=== PATIENT | female | born 1980 | race Caucasian/White ===

== ENCOUNTER 2021-08-05 13:09 | Emergency (ER) | payer BC, SELFPAY ==
[2021-08-05 13:15] VITALS: BP 162/77; PULSE 83; RESP 16; TEMP 37.2; O2SAT 99; BMI 23.5
[2021-08-05 14:36] LABS: Basophils % 0.3 %; Eosinophils # 0.1 10^3/uL (0.0-0.8); Eosinophils % 0.5 %; Hematocrit 39.8 % (37.0-47.0); Hemoglobin 13.1 g/dL (11.5-15.3); Lymphocytes # 2.1 10^3/uL (0.8-4.8); Mean Corpuscular HGB Conc 32.9 g/dL (30.0-36.0); Mean Corpuscular Hemoglobin 29.1 pg (28.0-34.0); Mean Corpuscular Volume 88.4 fl (81-99); Mean Platelet Volume 10.2 fL (7.4-10.4); Monocytes # 0.6 10^3/uL (0.2-0.9); Monocytes % 6.4 %; Neutrophils # 6.46 10^3/uL (1.8-7.7); Neutrophils % 69.6 %; Nucleated Red Blood Cells % 0 %; Platelet Count 252 10^3/cmm (130-400); Red Cell Distribution Width 11.9 % (12.1-15.1); White Blood Count 9.3 10^3/uL (4.0-10.0)
[2021-08-05 15:04] LABS: Alanine Aminotransferase 17 U/L (0-33); Albumin Level 4.4 g/dL (3.5-5.2); Alkaline Phosphatase 72 IU/L (35-105); Anion Gap 14.8 (5-19); Aspartate Amino Transferase 17 U/L (0-32); Blood Urea Nitrogen 14 mg/dL (6-20); Calcium 8.3 mg/dL (8.5-10.5); Carbon Dioxide 25 mmol/L (22-29); Chloride 103 mmol/L (98-107); Globulin 2.1 g/dL (1.3-4.6); Glomerular Filtration Rate 137.4 mL/min (90-130); Glucose 107 mg/dL (65-115); Lipase 27 U/L (13-60); Osmolality Calculated 289 mOsm/kg (285-295); Potassium 3.8 mmol/L (3.5-5.1); Sodium 139 mmol/L (136-145); Total Bilirubin 0.2 mg/dL (0.15-1.2); Total Protein 6.5 g/dL (6.6-8.7)
[2021-08-05 15:07] LABS: Blood Urine 3+ (Negative); Specific Gravity, Urine 1.015 (1.005-1.030); Urine Appearance Hazy (CLEAR); Urine Color Yellow (Yellow); pH Urine 7 (5-7)
[2021-08-05] MEDS: HYDROcodone-acetaminophen 5-325 mg Tablet 1 TAB PO (15:07)
[2021-08-05 15:08] LABS: Add Urine Microscopic? YES; Bilirubin Urine Neg (Negative); Glucose Urine UA Norm (Normal); Ketones Urine Negative (Negative); Leukocyte Esterase Urine Negative (Negative); Nitrate Urine Negative (Negative); Protein Urine Neg (Negative); Urobilinogen Urine Norm (Negative)
[2021-08-05] MEDS: sodium chloride 0.9% 1,000 ML 999 ML IV (15:08)
[2021-08-05 15:14] LABS: Add Urine Culture? Yes; Bacteria Urine 2+ /hpf; Mucus Urine 1+ /hpf; Squamous Epithelial Cell Urine 0-4 /hpf (0-5); WBC Urine 25-40 /hpf (0-5)
--- NOTE | 2021-08-05 15:21 | CTR_ITS ---
PROCEDURE INFORMATION: Exam: CT Abdomen And Pelvis Without Contrast Exam date and time: 08/05/2021 3:49 PM Age: 41 years old Clinical indication: Abdominal pain; Flank; Left; Prior surgery; Surgery type: Hysto; Additional info: Flank pain TECHNIQUE: Imaging protocol: Computed tomography of the abdomen and pelvis without contrast. Radiation optimization: All CT scans at this facility use at least one of these dose optimization techniques: automated exposure control; mA and/or kV adjustment per patient size (includes targeted exams where dose is matched to clinical indication); or iterative reconstruction. COMPARISON: No relevant prior studies available. RADIATION DOSE METRICS: Total DLP (mGy-cm): 1025.12 FINDINGS: Liver: Normal. No mass. Gallbladder and bile ducts: Normal. No calcified stones. No ductal dilation. Pancreas: Normal. No ductal dilation. Spleen: Normal. No splenomegaly. Adrenal glands: Normal. No mass. Kidneys and ureters: 4 mm stone noted in the distal left ureter just proximal to the UVJ. There is mild upstream hydroureteronephrosis. Stomach and bowel: Unremarkable. No obstruction. No mucosal thickening. Appendix: No evidence of appendicitis. Intraperitoneal space: Unremarkable. No free air. No significant fluid collection. Vasculature: Unremarkable. No abdominal aortic aneurysm. Lymph nodes: Unremarkable. No enlarged lymph nodes. Urinary bladder: Unremarkable as visualized. Reproductive: Hysterectomy. Bones/joints: No acute fracture. Soft tissues: Unremarkable. CT/CT kidney stone [id number] IMPRESSION: 4 mm stone in the distal left ureter just proximal to the left UVJ. There is mild upstream hydroureteronephrosis.
--- NOTE | 2021-08-05 16:11 | ED_ITS ---
HPI - General Adult General: Chief complaint: General Medical Stated complaint: kidney pain/SOB Time Seen by Provider: 08/05/21 14:30 History of Present Illness: 41-year-old female patient presents to the emergency department complaining of left-sided flank pain. Patient states she w as recently treated for urinary tract infection and just completed 10 days of antibiotics. Patient states she has had blood in her urine and pain is increased on her left flank since. Patient denies any fever. Patient denies any nausea vomiting. Patient denies any chest pain or shortness of breath. Patient denies any abdominal pain. Associated symptoms: Deny chest pain, confusion, diaphoresis, dyspnea, headache(s), malaise, nausea, rash, palpitations, syncope or vomiting Review of Systems Const: Denies: fever(s), chills, body aches, change in appetite, change in weight, fatigue, malaise or diaphoresis Eyes: Denies: change in vision, blurry vision, blind spots, photophobia, eye discomfort, eye discharge, eye redness, floaters or seeing flashes ENMT: Denies: throat pain, uvular edema, enlarged tonsils, odynophagia, hoarseness, mouth pain, swelling of lips/tongue, oral sores, bleeding gums, dental pain, dry mouth, ear or mastoid pain, ear discharge, change in hearing, tinnitus, disequilibrium, nasal discharge, nasal congestion, post nasal drip or sinus pain Card: Denies: chest pain, palpitations, irregular heart rhythm, edema, swelling of feet/ankles, lightheadedness, syncope, pre-syncope, dyspnea on exertion, orthopnea, leg pain with exertion or acrocyanosis Resp: Denies: dyspnea, productive cough, non-productive cough, wheezing, stridor, pain on inspiration, change in phlegm color, hemoptysis or chest congestion GI: Denies: abdominal pain, nausea, vomiting, hematemesis, dysphagia, diarrhea, constipation, GI cramping, change in bowel habits or rectal pain : Reports: flank pain; Denies: difficulty voiding, dysuria, urinary frequency, urinary urgency, urinary hesitancy or hematuria Musc: Denies: neck pain, back pain, extremity pain, extremity swelling, joint pain, joint swelling, joint redness, joint warmth or deformity Skin/Breast: Denies: rash, pruritus, erythema, sores, new lesions, changes in skin color or dry skin Neuro: Denies: headache(s), numbness in extremities, weakness in extremities, sensory changes, lack of coordination, difficulty walking, frequent falls, dizziness, vertigo, confusion, behavioral changes, Slurred speech present, difficulty communicating thoughts or seizure-like activity Psych: Denies: anxiety, depression, suicidal ideation or homicidal ideation Endo: Denies: polyuria, polydipsia, tired all the time, cold intolerance, excessive sweating, flushing, hot flashes or heat intolerance Olu/Lymph: Denies: easy bruising, easy bleeding, petechiae, purpura, enlarged lymph nodes or tender lymph nodes All/Imm: Denies: urticaria, throat swelling, tongue swelling, facial swelling, acute wheezing or itchy eyes Physical Exam Const: COMMON NORMALS: no acute distress, average body habitus, patient oriented x3, no limitations, healthy appearing, alert and well nourished HENMT: COMMON NORMALS: normocephalic and atraumatic HEAD & SCALP: normocephalic and atraumatic THROAT: no uvular edema Neck/C-Spine: COMMON NORMALS: no JVD Chest: COMMONS NORMALS: normal inspection of the chest and normal palpation of entire chest wall Resp: COMMON NORMALS: normal respiratory effort, No retractions, No use of accessory muscles, clear to auscultation bilaterally and percussion normal AUSCULTATION: clear to auscultation bilaterally PERCUSSION: percussion normal Cardio: COMMON NORMALS: no JVD, regular rate, regular rhythm and No murmurs present (Cardio) RATE: regular rate RHYTHM: regular rhythm GI: COMMON NORMALS: Normal to inspection, nondistended, normoactive bowel sounds present, Soft to palpation, non-tender, No hepatosplenomegaly present, no masses and no bruits PALPATION: Yes Soft to palpation and Yes No hepatosplenomegaly present : COMMON NORMALS: Yes no CVA tenderness BLADDER/KIDNEY EXAM: Yes no CVA tenderness Back/Pelvis: COMMON NORMALS: no CVA tenderness, thoracic and lumbar spine normal to inspection, no thoracic nor lumbar tenderness, thoraco-lumbar ROM normal and straight leg raise negative bilaterally Neuro: COMMON NORMALS: patient oriented x3 SENSORIUM/ORIENTATION: Yes alert Psych: COMMON NORMALS: mental status grossly normal, Normal thought process present, cooperative, normal affect, speech normal, activity/motor behavior normal, denies hallucinations, denies homicidal ideation and denies suicidal ideation SPEECH: Yes normal speech THOUGHT PROCESS: Normal thought process present Course Vital Signs: Vital signs: Vital Signs Temperature 99.0 F 08/05/21 13:15 Pulse Rate 82 08/05/21 16:22 Respiratory Rate 16 08/05/21 16:22 Blood Pressure 156/88 08/05/21 16:22 Pulse Oximetry 98 08/05/21 16:22 MDM - General Adult Medical Decision Making Patient is well appearing non toxic and in no acute distress. Pt is oted to have a 4mm stone. Pt is not vomiting and pain is controlled. Pt states she has a prescription called in for Cipro and does not need any antibiotics as she will pick this one up. I will send patient home with a prescription for pain meds and have her follow up with urology. Urine strainer provided. Differential Diagnosis UTI, kidney stones, pylonephritis Lab Data : 08/05/21 14:20 08/05/21 14:20 Radiology Impressions Abdomen/Pelvis CT 08/05/21 15:21 IMPRESSION: 4 mm stone in the distal left ureter just proximal to the left UVJ. There is mild upstream hydroureteronephrosis. Laboratory Results WBC 9.3 10^3/uL (4.0-10.0) 08/05/21 14:20 RBC 4.50 10^6/uL (4.1-5.3) 08/05/21 14:20 Hgb 13.1 g/dL (11.5-15.3) 08/05/21 14:20 Hct 39.8 % (37.0-47.0) 08/05/21 14:20 MCV 88.4 fl (81-99) 08/05/21 14:20 MCH 29.1 pg (28.0-34.0) 08/05/21 14:20 MCHC 32.9 g/dL (30.0-36.0) 08/05/21 14:20 RDW 11.9 % (12.1-15.1) L 08/05/21 14:20 Plt Count 252 10^3/cmm (130-400) 08/05/21 14:20 MPV 10.2 fL (7.4-10.4) 08/05/21 14:20 Neut % (Auto) 69.6 % 08/05/21 14:20 Lymph % (Auto) 23.0 % 08/05/21 14:20 [place] % (Auto) 6.4 % 08/05/21 14:20 Eos % (Auto) 0.5 % 08/05/21 14:20 Baso % (Auto) 0.3 % 08/05/21 14:20 Neut # (Auto) 6.46 10^3/uL (1.8-7.7) 08/05/21 14:20 Lymph # (Auto) 2.1 10^3/uL (0.8-4.8) 08/05/21 14:20 [place] # (Auto) 0.6 10^3/uL (0.2-0.9) 08/05/21 14:20 Eos # (Auto) 0.1 10^3/uL (0.0-0.8) 08/05/21 14:20 Baso # (Auto) 0.0 10^3/uL (0.0-0.1) 08/05/21 14:20 Nucleated RBC % (auto) 0 % 08/05/21 14:20 Nucleated RBCs # 0.0 /100WBC 08/05/21 14:20 Sodium 139 mmol/L (136-145) 08/05/21 14:20 Potassium 3.8 mmol/L (3.5-5.1) 08/05/21 14:20 Chloride 103 mmol/L (98-107) 08/05/21 14:20 Carbon Dioxide 25 mmol/L (22-29) 08/05/21 14:20 Anion Gap 14.8 (5-19) 08/05/21 14:20 BUN 14 mg/dL (6-20) 08/05/21 14:20 Creatinine 0.5 mg/dL (0.5-0.9) 08/05/21 14:20 GFR Calculation 137.4 mL/min (90-130) H 08/05/21 14:20 Glucose 107 mg/dL (65-115) 08/05/21 14:20 Calculated Osmolality 289 mOsm/kg (285-295) 08/05/21 14:20 Calcium 8.3 mg/dL (8.5-10.5) L 08/05/21 14:20 Total Bilirubin 0.2 mg/dL (0.15-1.2) 08/05/21 14:20 AST 17 U/L (0-32) 08/05/21 14:20 ALT 17 U/L (0-33) 08/05/21 14:20 Alkaline Phosphatase 72 IU/L (35-105) 08/05/21 14:20 Total Protein 6.5 g/dL (6.6-8.7) L 08/05/21 14:20 Albumin 4.4 g/dL (3.5-5.2) 08/05/21 14:20 Globulin 2.1 g/dL (1.3-4.6) 08/05/21 14:20 Lipase 27 U/L (13-60) 08/05/21 14:20 HCG, Qual Cancelled 08/05/21 14:20 Urine Color Yellow (Yellow) 08/05/21 14:25 Urine Appearance Hazy (CLEAR) A 08/05/21 14:25 Urine pH 7 (5-7) 08/05/21 14:25 Ur Specific [place] 1.015 (1.005-1.030) 08/05/21 14:25 Urine Protein Neg (Negative) 08/05/21 14:25 Urine Glucose (UA) Norm (Normal) 08/05/21 14:25 Urine Ketones Negative (Negative) 08/05/21 14:25 Urine Blood 3+ (Negative) H 08/05/21 14:25 Urine Nitrate Negative (Negative) 08/05/21 14:25 Urine Bilirubin Neg (Negative) 08/05/21 14:25 Prot Sulfosalicylic Acd Accounting File Clerk 08/05/21 14:25 Urine Urobilinogen Norm mg/dL (Negative) 08/05/21 14:25 Ur Leukocyte Esterase Negative (Negative) 08/05/21 14:25 Urine RBC 10-15 /hpf (0-2) H 08/05/21 14:25 Urine WBC 25-40 /hpf (0-5) H 08/05/21 14:25 Ur Squamous Epith Cells 0-4 /hpf (0-5) H 08/05/21 14:25 Amorphous Sediment Not Reportable 08/05/21 14:25 Urine Bacteria 2+ /hpf (NONE) H 08/05/21 14:25 Urine Mucus 1+ /hpf 08/05/21 14:25 Discharge Plan Discharge Condition: Stable Prescriptions: No Action phentermine 37.5 mg Tablet 37.5 mg PO DAILY 0RF Rx Instructions: must administer 30 minutes before or 1-2 hours after breakfast estradiol 2 mg Tablet 2 mg PO DAILY 0RF sertraline 50 mg Tablet 50 mg PO DAILY 0RF Coding Level of Care Code ED Precision Lens Grinder Apprentice for Iris Mcelroy
[2021-08-05 16:22] VITALS: BP 156/88; PULSE 82; RESP 16; O2SAT 98
== END 2021-08-05 17:05 | disposition home or self-care (01) ==
PROVIDERS: Emergency Medicine; Emergency Provider Registered Nurse
DX: N20.1 Calculus of ureter (principal)
CPT/HCPCS: 74176; 80053; 81001; 83690; 85025; 87086; 96360; 99284; J7030

== ENCOUNTER 2021-08-08 11:30 | Emergency (ER) | payer BC, SELFPAY ==
[2021-08-08] VITALS (9 sets, daily range): BP systolic 125–157; BP diastolic 74–89; PULSE 68–88; RESP 16–19; TEMP 36.6; O2SAT 95–100; BMI 23.5
--- NOTE | 2021-08-08 11:43 | ED_ITS ---
HPI - General Adult General: Chief complaint: Urogenital-Female Stated complaint: SOB, Pain in lower abd and back area N/V Time Seen by Provider: 08/08/21 11:33 History of Present Illness: Patient is a 41-year-old female with a history of recurrent UTIs (most recently completed a 10 day of of abx), prior appendectomy presenting to the emergency room for complaints of worsening left-sided flank pain and nausea. Patient was initially seen and evaluated 2 days ago and was diagnosed with renal colic with a 4 mm stone in the left UVJ. Patient was noted also noted to have bacteria and elevated WBCs per high-power field. Patient was discharged home with ciprofloxacin with close follow-up. Patient has been taking her medicine however has noticed worsening pain and dysuria decided to come back to the emergency room for further evaluation. Patient denies any vomiting but reports moderate left lower flank pain. Patient has no new vaginal discharge that is different from her usual. Denies any diarrhea, chest pain, shortness of palpitation, lightheadedness, or other complaints today. Onset:2 days ago Duration:2 days Location:home Severity:moderate Associated symptoms: Deny chest pain, dyspnea, nausea, rash, palpitations or vomiting Review of Systems Const: Denies: fever(s) or chills Eyes: Denies: change in vision ENMT: Denies: mouth pain Card: Denies: chest pain or palpitations Resp: Denies: dyspnea or non-productive cough GI: Denies: abdominal pain, nausea, vomiting or diarrhea : Reports: flank pain and dysuria Musc: Denies: extremity pain Skin/Breast: Denies: rash or new lesions Neuro: Denies: weakness in extremities Psych: Reports: other (Normal mood) Olu/Lymph: Denies: easy bruising PFSH ED PFSH: Medical History Renal colic UTI (urinary tract infection) Surgical History History of appendectomy Social History Smoking and tobacco status: never smoked Alcohol intake: never Substance/Drug Use: never Physical Exam Const: COMMON NORMALS: alert HENMT: COMMON NORMALS: atraumatic HEAD & SCALP: atraumatic MOUTH: moist mucous membranes not abnormal Eye: COMMON NORMALS: EOMs intact bilaterally and conjunctivae normal CONJUNCTIVA: Yes conjunctivae normal Neck/C-Spine: COMMON NORMALS: full ROM and supple Resp: COMMON NORMALS: normal respiratory effort and clear to auscultation bilaterally AUSCULTATION: clear to auscultation bilaterally Cardio: COMMON NORMALS: regular rate RATE: regular rate GI: COMMON NORMALS: Soft to palpation and non-tender PALPATION: Yes Soft to palpation OTHER: +LLQ TTP. +L CVA tenderness to percusion. No guarding rebound, guarding, rigidity. Neg Beard/Neg McBurney's point tenderness, no suprabupic tenderness to palpation. Extremity: COMMON NORMALS: full ROM Neuro: SENSORIUM/ORIENTATION: Yes alert MOTOR EXAM: No Abnormal motor strength present and Other motor observations present (no focal motor deficits) Psych: COMMON NORMALS: speech normal SPEECH: Yes normal speech MOOD & AFFECT: Yes euthymic mood Course Vital Signs: Vital signs: Vital Signs Temperature 97.9 F 08/08/21 11:35 Pulse Rate 86 08/08/21 13:43 Respiratory Rate 18 08/08/21 13:43 Blood Pressure 157/86 08/08/21 13:43 Pulse Oximetry 100 08/08/21 13:43 MDM - General Adult Medical Decision Making 41-year-old female with a history of recurrent UTI presenting to the emergency room with concerns for worsening left lower quadrant and left flank pain x2 days since previously seen in the emergency room. On physical exam, patient moderate left lower quadrant or left CVA tenderness palpation. White count of 19 K. UA showed 2+ blood with 2+ ketones. CT abdomen pelvis showed stone size 5.7 mm enlarged compared to prior measurements of 4 mm. There appears to be mild hydroureter and hydronephrosis with a normal creatinine. No signs of UTI. Patient received IVF, morphine and Dilaudid with mild improvement in pain. We do not have urology currently scrap iron cutter today. Patient request to be transfer at this time. Case was discussed with Dr. Armstrong from Urology at [facility] who agreed with the transfer to [facility] for management of enlarged kidney stone. Disposition: Transfer to outside hospital Lab Data : 08/08/21 11:44 08/08/21 11:44 Radiology Impressions Abdomen/Pelvis CT 08/08/21 12:51 IMPRESSION: 1. Mild progression of the LEFT hydroureteronephrosis secondary to a 5.7 mm calcification at the UV junction. 2. Distal LEFT ureteral calcification has migrated inferiorly by 2 cm. 3. Prior hysterectomy and appendectomy. Laboratory Results WBC 19.0 10^3/uL (4.0-10.0) H 08/08/21 11:44 RBC 4.82 10^6/uL (4.1-5.3) 08/08/21 11:44 Hgb 13.9 g/dL (11.5-15.3) 08/08/21 11:44 Hct 42.8 % (37.0-47.0) 08/08/21 11:44 MCV 88.8 fl (81-99) 08/08/21 11:44 MCH 28.8 pg (28.0-34.0) 08/08/21 11:44 MCHC 32.5 g/dL (30.0-36.0) 08/08/21 11:44 RDW 11.7 % (12.1-15.1) L 08/08/21 11:44 Plt Count 262 10^3/cmm (130-400) 08/08/21 11:44 MPV 10.2 fL (7.4-10.4) 08/08/21 11:44 Neut % (Auto) 84.2 % 08/08/21 11:44 Lymph % (Auto) 9.5 % 08/08/21 11:44 [place] % (Auto) 5.4 % 08/08/21 11:44 Eos % (Auto) 0.1 % 08/08/21 11:44 Baso % (Auto) 0.4 % 08/08/21 11:44 Neut # (Auto) 16.00 10^3/uL (1.8-7.7) H 08/08/21 11:44 Lymph # (Auto) 1.8 10^3/uL (0.8-4.8) 08/08/21 11:44 [place] # (Auto) 1.0 10^3/uL (0.2-0.9) H 08/08/21 11:44 Eos # (Auto) 0.0 10^3/uL (0.0-0.8) 08/08/21 11:44 Baso # (Auto) 0.1 10^3/uL (0.0-0.1) 08/08/21 11:44 Nucleated RBC % (auto) 0 % 08/08/21 11:44 Nucleated RBCs # 0.0 /100WBC 08/08/21 11:44 Sodium 136 mmol/L (136-145) 08/08/21 11:44 Potassium 3.6 mmol/L (3.5-5.1) 08/08/21 11:44 Chloride 96 mmol/L (98-107) L 08/08/21 11:44 Carbon Dioxide 23 mmol/L (22-29) 08/08/21 11:44 Anion Gap 20.6 (5-19) H 08/08/21 11:44 BUN 11 mg/dL (6-20) 08/08/21 11:44 Creatinine 0.7 mg/dL (0.5-0.9) 08/08/21 11:44 GFR Calculation 93.2 mL/min (90-130) 08/08/21 11:44 Glucose 145 mg/dL (65-115) H 08/08/21 11:44 Calculated Osmolality 284 mOsm/kg (285-295) L 08/08/21 11:44 Calcium 9.4 mg/dL (8.5-10.5) 08/08/21 11:44 Total Bilirubin 0.3 mg/dL (0.15-1.2) 08/08/21 11:44 AST 25 U/L (0-32) 08/08/21 11:44 ALT 19 U/L (0-33) 08/08/21 11:44 Alkaline Phosphatase 73 IU/L (35-105) 08/08/21 11:44 Total Protein 7.3 g/dL (6.6-8.7) 08/08/21 11:44 Albumin 4.7 g/dL (3.5-5.2) 08/08/21 11:44 Globulin 2.6 g/dL (1.3-4.6) 08/08/21 11:44 Lipase 14 U/L (13-60) 08/08/21 11:44 Urine Color Straw (Yellow) 08/08/21 11:44 Urine Appearance Cloudy (CLEAR) 08/08/21 11:44 Urine pH 9 (5-7) H 08/08/21 11:44 Ur Specific [place] 1.020 (1.005-1.030) 08/08/21 11:44 Urine Protein Neg (Negative) 08/08/21 11:44 Urine Glucose (UA) Norm (Normal) 08/08/21 11:44 Urine Ketones 2+ (Negative) H 08/08/21 11:44 Urine Blood 2+ (Negative) H 08/08/21 11:44 Urine Nitrate Negative (Negative) 08/08/21 11:44 Urine Bilirubin Neg (Negative) 08/08/21 11:44 Prot Sulfosalicylic Acd Negative (Negative) 08/08/21 11:44 Urine Urobilinogen Norm mg/dL (Negative) 08/08/21 11:44 Ur Leukocyte Esterase Negative (Negative) 08/08/21 11:44 Urine RBC 5-10 /hpf (0-2) H 08/08/21 11:44 Urine WBC None /hpf (0-5) 08/08/21 11:44 Ur Squamous Epith Cells 0-4 /hpf (0-5) H 08/08/21 11:44 Amorphous Sediment 2+ /hpf 08/08/21 11:44 Urine Bacteria Trace /hpf (NONE) 08/08/21 11:44 Urine HCG, Qual Negative (Negative) 08/08/21 11:44 Imaging Data Other Imaging: Radiologist's impression: [place] [address] CT Scan Report Signed Patient: Crystal Parisi Unit #: [id number] : 1980 Age/Sex: 41 / F ADM Date: 08/08/21 Loc: ER Room/Bed: Attending Dr: Ordering Provider/Ordering MD: Joaquin Hazel MD Date of Service: 08/08/21 Procedure(s): CT abdomen pelvis con [id number] Accession Number(s): [id number] Report Number: [id number] WS: [id number] CT ABDOMEN AND PELVIS NONCONTRAST HISTORY: worsening hydronephrosis? TECHNIQUE: Imaging performed through the abdomen and pelvis. Coronal and sagittal reformats are submitted.? All CT scans at [facility] use at least one of these dose optimization techniques: automated exposure control; mA and/or kV adjustment per patient size (includes targeted exams where dose is matched to clinical indication); or iterative reconstruction. ? DLP: 997.89 mGy.cm COMPARISON: 08/05/2021 Lower thorax: Lung bases are clear. Visualized heart is normal. No hiatal hernia. Bilateral breast implants. Liver: Normal size liver. No mass or bile duct dilatation. Gallbladder: Normal gallbladder. Pancreas: Normal size and attenuation. Normal pancreatic duct. No pancreatitis or mass. Spleen: Normal. Adrenal glands: Normal. No mass. Right kidney: Normal size RIGHT kidney. 2 mm nonobstructing calcification in the lower pole. No hydronephrosis or mass. Left kidney: Mildly enlarged kidney with stranding. Perinephric stranding and hydroureteronephrosis has progressed since the prior examination. Periureteral stranding and dilatation. Again noted is a 5.7 mm calcification in the distal ureter which has minimally migrated inferiorly by approximately 2 cm since the prior study. Calcification is at the UV junction. Aorta: Normal abdominal aorta, no aneurysm or atherosclerosis. No free fluid, intraperitoneal air or significant lymphadenopathy. GI tract: Prior appendectomy. Stomach is normally distended with fluid. Mild RIGHT colonic constipation. Abdominal wall: Negative. No hernia. Pelvis: Prior hysterectomy. Osseous structures: Unremarkable. CT/CT abdomen pelvis wo con [id number] IMPRESSION: ? 1.? Mild progression of the LEFT hydroureteronephrosis secondary to a 5.7 mm calcification at the UV junction. 2.? Distal LEFT ureteral calcification has migrated inferiorly by 2 cm. 3.? Prior hysterectomy and appendectomy. ? Dictated By: Lisha Copeland DO Signed By: Lisha Copeland DO Signed Date/Time: 08/08/21 1317 DD/ 1311 Discharge Plan Discharge Clinical Impression: Acute flank pain, Dysuria Condition: Stable Prescriptions: No Action phentermine 37.5 mg Tablet 37.5 mg PO QAM 0RF Rx Instructions: must administer 30 minutes before or 1-2 hours after breakfast estradiol 2 mg Tablet 2 mg PO QAM 0RF sertraline 50 mg Tablet 50 mg PO BEDTIME 0RF hydrocodone-acetaminophen 5-325 mg tablet 1 tab PO Q4H PRN (Reason: Pain) 0RF ciprofloxacin HCl 500 mg tablet 500 mg PO BID 0RF Rx Instructions: FOR 7 DAYS Coding Level of Care Code ED Ecommerce Analyst for Chg Fwd Exam Comprehensive
[2021-08-08 11:52] LABS: Basophils # 0.1 10^3/uL (0.0-0.1); Basophils % 0.4 %; Eosinophils % 0.1 %; Hematocrit 42.8 % (37.0-47.0); Hemoglobin 13.9 g/dL (11.5-15.3); Lymphocytes # 1.8 10^3/uL (0.8-4.8); Lymphocytes % 9.5 %; Mean Corpuscular HGB Conc 32.5 g/dL (30.0-36.0); Mean Corpuscular Hemoglobin 28.8 pg (28.0-34.0); Mean Corpuscular Volume 88.8 fl (81-99); Mean Platelet Volume 10.2 fL (7.4-10.4); Monocytes % 5.4 %; Neutrophils % 84.2 %; Nucleated Red Blood Cells % 0 %; Platelet Count 262 10^3/cmm (130-400); Red Blood Count 4.82 10^6/uL (4.1-5.3); Red Cell Distribution Width 11.7 % (12.1-15.1)
[2021-08-08] MEDS: morphine 4 mg/mL SDV 1 mL IVP (11:52)
[2021-08-08] MEDS: cefTRIAXone 1,000 MG in sodium chloride 0.9% (plus) 50 ML 100 MG IV (11:54)
[2021-08-08] MEDS: acetaminophen 500 mg Tablet PO (11:57)
[2021-08-08 12:05] LABS: Add Urine Microscopic? YES; Bilirubin Urine Neg (Negative); Blood Urine 2+ (Negative); Glucose Urine UA Norm (Normal); Ketones Urine 2+ (Negative); Leukocyte Esterase Urine Negative (Negative); Nitrate Urine Negative (Negative); Protein Urine Neg (Negative); Urine Appearance Cloudy (CLEAR); Urine Color Straw (Yellow); Urobilinogen Urine Norm (Negative); pH Urine 9 (5-7)
[2021-08-08 12:06] LABS: Bacteria Urine TRACE /hpf; Squamous Epithelial Cell Urine 0-4 /hpf (0-5); Sulfosalicylic Acid Urine Negative (Negative)
[2021-08-08 12:07] LABS: Add Urine Culture? No; Amorphous Sediment Urine 2+ /hpf
[2021-08-08] MEDS: sodium chloride 0.9% 1,000 ML 999 ML IV ×2 (12:07→13:28)
[2021-08-08] MEDS: HYDROmorphone 1 mg/mL INJ 1 mL 0.5 MG IVP (12:23)
--- NOTE | 2021-08-08 12:51 | CT_ITS ---
WS: [id number] CT ABDOMEN AND PELVIS NONCONTRAST HISTORY: worsening hydronephrosis? TECHNIQUE: Imaging performed through the abdomen and pelvis. Coronal and sagittal reformats are submi tted. All CT scans at [facility] use at least one of these dose optimization techniques: auto mated exposure control; mA and/or kV adjustment per patient size (includes targeted exams where dose is matched to clinical indication); or iterative reconstruction. DLP: 997.89 mGy.cm COMPARISON: 08/05/2021 Lower thorax: Lung bases are clear. Visualized heart is normal. No hiatal hernia. Bilateral breast im plants. Liver: Normal size liver. No mass or bile duct dilatation. Gallbladder: Normal gallbladder. Pancreas: Normal size and attenuation. Normal pancreatic duct. No pancreatitis or mass. Spleen: Normal. Adrenal glands: Normal. No mass. Right kidney: Normal size RIGHT kidney. 2 mm nonobstructing calcification in the lower pole. No hydro nephrosis or mass. Left kidney: Mildly enlarged kidney with stranding. Perinephric stranding and hydroureteronephrosis h as progressed since the prior examination. Periureteral stranding and dilatation. Again noted is a 5. 7 mm calcification in the distal ureter which has minimally migrated inferiorly by approximately 2 cm since the prior study. Calcification is at the UV junction. Aorta: Normal abdominal aorta, no aneurysm or atherosclerosis. No free fluid, intraperitoneal air or significant lymphadenopathy. GI tract: Prior appendectomy. Stomach is normally distended with fluid. Mild RIGHT colonic constipati on. Abdominal wall: Negative. No hernia. Pelvis: Prior hysterectomy. Osseous structures: Unremarkable. CT/CT abdomen pelvis wo con [id number] IMPRESSION: 1. Mild progression of the LEFT hydroureteronephrosis secondary to a 5.7 mm ca lcification at the UV junction. 2. Distal LEFT ureteral calcification has migrated inferiorly by 2 cm. 3. Prior hysterectomy and appendectomy.
[2021-08-08 13:07] LABS: Alanine Aminotransferase 19 U/L (0-33); Albumin Level 4.7 g/dL (3.5-5.2); Alkaline Phosphatase 73 IU/L (35-105); Aspartate Amino Transferase 25 U/L (0-32); Blood Urea Nitrogen 11 mg/dL (6-20); Calcium 9.4 mg/dL (8.5-10.5); Carbon Dioxide 23 mmol/L (22-29); Chloride 96 mmol/L (98-107); Globulin 2.6 g/dL (1.3-4.6); Glomerular Filtration Rate 93.2 mL/min (90-130); Glucose 145 mg/dL (65-115); Lipase 14 U/L (13-60); Osmolality Calculated 284 mOsm/kg (285-295); Sodium 136 mmol/L (136-145); Total Bilirubin 0.3 mg/dL (0.15-1.2); Total Protein 7.3 g/dL (6.6-8.7)
[2021-08-08 13:16] LABS: Anion Gap 20.6 (5-19); Potassium 3.6 mmol/L (3.5-5.1)
[2021-08-08] MEDS: fentaNYL 50 mcg/mL INJ 2mL IVP (14:39)
[2021-08-08] MEDS: ondansetron 2 mg/ML SDV 2 mL 4 MG IVP (15:48)
[2021-08-08] MEDS: HYDROmorphone 1 mg/mL INJ 1 mL IVP (18:26)
== END 2021-08-08 18:35 ==
PROVIDERS: Emergency Provider Emergency Medicine
DX: N20.0 Calculus of kidney (principal); R30.0 Dysuria; R11.0 Nausea
CPT/HCPCS: 74176; 80053; 81001; 81025; 83690; 85025; 96361; 96365; 96375; 96376; 99284; J0696; J1170; J2270; J2405; J3010; J7030